=== PATIENT | male | born 2005 | race Caucasian/White ===

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

== ENCOUNTER 2023-05-16 02:10 | Emergency (ER) | payer MEDICAID, SELFPAY ==
[2023-05-16 02:18] VITALS: BP 131/62; PULSE 72; RESP 16; TEMP 36.7; O2SAT 99; BMI 20.6
--- NOTE | 2023-05-16 02:31 | CTR_ITS ---
PROCEDURE INFORMATION: Exam: CT Abdomen And Pelvis Without Contrast Exam date and time: 05/16/2023 2:39 AM Age: 17 years old Clinical indication: Flank; Patient HX: Right anterior abdominal pain just below right ribs; Additional info: Rlq and flank pain TECHNIQUE: Imaging protocol: Computed tomography of the abdomen and pelvis without contrast. Radiation optimization: All CT scans at this facility use at least one of these dose optimization techniques: automated exposure control; mA and/or kV adjustment per patient size (includes targeted exams where dose is matched to clinical indication); or iterative reconstruction. REPORTING DATA: Count of CT and Cardiac NM exams in prior 12 months: This patient has received 0 known CTs and 0 known cardiac nuclear medicine studies in the 12 months prior to the current study. COMPARISON: No relevant prior studies available. RADIATION DOSE METRICS: Total DLP (mGy-cm): 427.03 FINDINGS: Lungs: Lung bases are clear. Liver: The liver is unremarkable. Gallbladder and bile ducts: The gallbladder is unremarkable. No biliary ductal dilatation. Pancreas: The pancreas is unremarkable. Spleen: The spleen is unremarkable. Adrenal glands: The adrenal glands are unremarkable. Kidneys and ureters: Obstructing ureterolith in the distal right ureter measuring up to 0.4 cm (axial series 3, image 207). This ureterolith is located approximately 1.5 cm proximal to the right ureterovesicular junction. Mild right hydroureter and hydronephrosis. Additional nonobstructing nephrolith in the right kidney lower pole measuring 0.3 cm. Additional nonobstructing nephrolith in the left kidney lower pole measuring 0.2 cm. Stomach and bowel: Nonobstructive bowel gas pattern. Appendix: The appendix is normal. Intraperitoneal space: Trace nonspecific free fluid in the pelvis. Vasculature: Unremarkable. No abdominal aortic aneurysm. Lymph nodes: No suspicious lymphadenopathy. Urinary bladder: Urinary bladder is within normal limits. Reproductive: Reproductive organs are within normal limits. Bones/joints: No acute osseous findings. Soft tissues: Superficial soft tissues are within normal limits. CT/CT kidney stone [id number] IMPRESSION: 1. Obstructing ureterolith in the distal right ureter measuring up to 0.4 cm, as above. Mild right hydroureter and hydronephrosis. 2. Additional tiny nonobstructing nephroliths in the bilateral kidneys as above.
[2023-05-16] MEDS: sodium chloride 0.9% 1,000 ML 999 ML IV (02:40)
[2023-05-16 02:42] LABS: Basophils % 0.4 %; Eosinophils % 0.1 %; Hematocrit 38.5 % (37-53); Lymphocytes # 1.9 10^3/uL (1.5-6.5); Lymphocytes % 25.3 %; Mean Corpuscular HGB Conc 35.6 g/dL (30-55); Mean Corpuscular Hemoglobin 30.7 pg (27-33); Mean Corpuscular Volume 86.3 fl (82-101); Mean Platelet Volume 8.8 fL (7.4-10.4); Monocytes # 0.3 10^3/uL (0.2-0.9); Monocytes % 3.7 %; Neutrophils % 70.4 %; Nucleated Red Blood Cells % 0 %; Platelet Count 298 10^3/cmm (157-399); Red Blood Count 4.46 10^6/uL (3.85-5.65); Red Cell Distribution Width 11.9 % (12.1-15.1); White Blood Count 7.39 10^3/uL (4.5-13.0)
[2023-05-16] MEDS: ondansetron 2 mg/ML SDV 2 mL 4 MG IVP (02:53)
[2023-05-16] MEDS: HYDROmorphone 1 mg/mL INJ 1 mL IVP (02:54)
[2023-05-16 02:58] LABS: Alanine Aminotransferase 13 U/L (0-41); Albumin Level 4.3 g/dL (3.5-5.2); Alkaline Phosphatase 80 U/L (40-130); Anion Gap 20.2 (5-19); Aspartate Amino Transferase 13 U/L (0-40); Blood Urea Nitrogen 12 mg/dL (6-20); Calcium 9.3 mg/dL (8.5-10.5); Carbon Dioxide 19 mmol/L (22-29); Chloride 104 mmol/L (98-107); Globulin 2.9 g/dL (1.3-4.6); Glomerular Filtration Rate 96.3 mL/min (90-130); Glucose 130 mg/dL (65-115); Lipase 21 U/L (13-60); Osmolality Calculated 292 mOsm/kg (285-295); Potassium 3.2 mmol/L (3.5-5.1); Sodium 140 mmol/L (136-145); Total Bilirubin 1.1 mg/dL (0.15-1.2); Total Protein 7.2 g/dL (6.6-8.7)
[2023-05-16 03:05] VITALS: BP 124/78; PULSE 56; RESP 16; O2SAT 99
--- NOTE | 2023-05-16 03:09 | ED_ITS ---
HPI - Abdominal Pain General: Chief Complaint: Abdominal Pain Stated Complaint: ABD PAIN Time Seen by Provider: 05/16/23 02:20 History of Present Illness: 17-year-old male complaining of right pelvic and right flank pain starting around 1 AM. He is nauseated. He vomited once. He was given pain medication in the ambulance, which helped to some degree. He still having some pain. No fever. No history of belly surgery. He is healthy otherwise. No diarrhea. Associated Symptoms: Reports nausea and vomiting; Denies chills, diarrhea, dysuria, fever(s) and hematochezia Review of Systems Const: Denies: fever(s), chills or body aches Eyes: Denies: change in vision Card: Denies: chest pain or palpitations Resp: Denies: dyspnea, productive cough, non-productive cough or wheezing GI: Reports: abdominal pain, nausea and vomiting; Denies: diarrhea or hematochezia : Reports: flank pain and difficulty urinating; Denies: dysuria Skin/Breast: Denies: rash Neuro: Denies: headache(s), weakness in extremities, dizziness or confusion PFS ED PFSH: Medical History No pertinent family history Surgical History No pertinent past surgical history Social History Smoking and tobacco status: never smoked Physical Exam Const: COMMON NORMALS: no acute distress GENERAL APPEARANCE: cooperative; not ill appearing and not frail appearing HENMT: COMMON NORMALS: normocephalic, atraumatic and Normal external nose present HEAD & SCALP: normocephalic and atraumatic FACE & SINUS: normal facial exam and face symmetric NOSE: Normal external nose present Eye: COMMON NORMALS: Equal, round and reactive pupils present and EOMs intact bilaterally PUPIL: Yes Equal, round and reactive pupils present Neck/C-Spine: GENERAL: Yes trachea midline Chest: CHEST: Yes Symmetrical chest wall rise Resp: COMMON NORMALS: normal respiratory effort, No retractions, No use of accessory muscles and clear to auscultation bilaterally AUSCULTATION: clear to auscultation bilaterally Cardio: COMMON NORMALS: regular rate and regular rhythm RATE: regular rate RHYTHM: regular rhythm GI: COMMON NORMALS: Normal to inspection, nondistended, normoactive bowel sounds present PALPATION: Yes Tenderness to palpation present (GI) Details: RLQ : BLADDER/KIDNEY EXAM: Yes CVA tenderness on the right Back/Pelvis: GENERAL BACK: Yes CVA tenderness Extremity: COMMON NORMALS: no pedal edema Neuro: BRINDA COMA SCALE: document GCS findings Turney coma scale eye opening: Spontaneous Brinda coma scale verbal response: Orientated Brinda coma scale motor response: Obey commands Brinda coma scale total score: 15 SENSORY EXAM: Yes extremities (intact) Psych: COMMON NORMALS: speech normal SPEECH: Yes normal speech Skin: COMMON NORMALS: no rashes or lesions noted GENERAL SKIN EXAM: no r ashes or lesions noted Course Vital Signs: Vital signs: Vital Signs Temperature 98.1 F 05/16/23 03:58 Pulse Rate 56 L 05/16/23 03:58 Respiratory Rate 16 05/16/23 03:58 Blood Pressure 124/78 05/16/23 03:58 Pulse Oximetry 99 05/16/23 03:58 Oxygen Delivery Me thod Room Air 05/16/23 02:18 MDM - Abdominal Pain Medical Decision Making White blood cell count is normal. Potassium is 3.2. Bicarb is 19. He is given a liter of fluid. Lipase is normal. CRP is 3. CT of the belly shows a 4 mm right distal ureter stone. Awaiting urinalysis result. Urinalysis reveals hematuria without infection. Patient's pain is better controlled. Will allow home, symptomatic treatment. Urology follow-up. Lab Data 05/16/23 02:38 05/16/23 02:38 Labs/Radiology: Radiology Impressions Abdomen/Pelvis CT 05/16/23 02:31 IMPRESSION: 1. Obstructing ureterolith in the distal right ureter measuring up to 0.4 cm, as above. Mild right hydroureter and hydronephrosis. 2. Additional tiny nonobstructing nephroliths in the bilateral kidneys as above. Laboratory Results WBC 7.39 10^3/uL (4.5-13.0) 05/16/23 02:38 RBC 4.46 10^6/uL (3.85-5.65) 05/16/23 02:38 Hgb 13.70 g/dL (13.2-15.6) 05/16/23 02:38 Hct 38.5 % (37-53) 05/16/23 02:38 MCV 86.3 fl (82-101) 05/16/23 02:38 MCH 30.7 pg (27-33) 05/16/23 02:38 MCHC 35.6 g/dL (30-55) 05/16/23 02:38 RDW 11.9 % (12.1-15.1) L 05/16/23 02:38 Plt Count 298 10^3/cmm (157-399) 05/16/23 02:38 MPV 8.8 fL (7.4-10.4) 05/16/23 02:38 Neut % (Auto) 70.4 % 05/16/23 02:38 Lymph % (Auto) 25.3 % 05/16/23 02:38 Collin % (Auto) 3.7 % 05/16/23 02:38 Eos % (Auto) 0.1 % 05/16/23 02:38 Baso % (Auto) 0.4 % 05/16/23 02:38 Neut # (Auto) 5.20 10^3/uL (1.8-8.0) 05/16/23 02:38 Lymph # (Auto) 1.9 10^3/uL (1.5-6.5) 05/16/23 02:38 Collin # (Auto) 0.3 10^3/uL (0.2-0.9) 05/16/23 02:38 Eos # (Auto) 0.0 10^3/uL (0.0-0.8) 05/16/23 02:38 Baso # (Auto) 0.0 10^3/uL (0.0-0.1) 05/16/23 02:38 Nucleated RBC % (auto) 0 % 05/16/23 02:38 Nucleated RBCs # 0.0 /100WBC 05/16/23 02:38 Sodium 140 mmol/L (136-145) 05/16/23 02:38 Potassium 3.2 mmol/L (3.5-5.1) L 05/16/23 02:38 Chloride 104 mmol/L (98-107) 05/16/23 02:38 Carbon Dioxide 19 mmol/L (22-29) L 05/16/23 02:38 Anion Gap 20.2 (5-19) H 05/16/23 02:38 BUN 12 mg/dL (6-20) 05/16/23 02:38 Creatinine 1.0 mg/dL (0.7-1.2) 05/16/23 02:38 GFR Calculation 96.3 mL/min (90-130) 05/16/23 02:38 Glucose 130 mg/dL (65-115) H 05/16/23 02:38 Calculated Osmolality 292 mOsm/kg (285-295) 05/16/23 02:38 Calcium 9.3 mg/dL (8.5-10.5) 05/16/23 02:38 Total Bilirubin 1.1 mg/dL (0.15-1.2) 05/16/23 02:38 AST 13 U/L (0-40) 05/16/23 02:38 ALT 13 U/L (0-41) 05/16/23 02:38 Alkaline Phosphatase 80 U/L (40-130) 05/16/23 02:38 C-Reactive Protein 3.0 mg/L (0.0-4.9) 05/16/23 02:38 Total Protein 7.2 g/dL (6.6-8.7) 05/16/23 02:38 Albumin 4.3 g/dL (3.5-5.2) 05/16/23 02:38 Globulin 2.9 g/dL (1.3-4.6) 05/16/23 02:38 Lipase 21 U/L (13-60) 05/16/23 02:38 Urine Color Light yellow (Yellow) 05/16/23 02:59 Urine Appearance Cloudy (CLEAR) A 05/16/23 02:59 Urine pH 9 (5-7) H 05/16/23 02:59 Ur Specific [place] 1.015 (1.005-1.030) 05/16/23 02:59 Urine Protein Neg (Negative) 05/16/23 02:59 Urine Glucose (UA) Norm (Normal) 05/16/23 02:59 Urine Ketones 2+ (Negative) H 05/16/23 02:59 Urine Blood 3+ (Negative) H 05/16/23 02:59 Urine Nitrate Negative (Negative) 05/16/23 02:59 Urine Bilirubin Neg (Negative) 05/16/23 02:59 Prot Sulfosalicylic Acd Negative (Negative) 05/16/23 02:59 Urine Urobilinogen Neg mg/dL (Negative) 05/16/23 02:59 Ur Leukocyte Esterase Negative (Negative) 05/16/23 02:59 Urine RBC 50-80 /hpf (0-2) H 05/16/23 02:59 Urine WBC 0-4 /hpf (0-5) H 05/16/23 02:59 Ur Squamous Epith Cells None /hpf (0-5) 05/16/23 02:59 Amorphous Sediment 2+ /hpf 05/16/23 02:59 Urine Bacteria 2+ /hpf (NONE) H 05/16/23 02:59 XR interpretation done by ED provider, pending radiology final review Discharge Plan Discharge Patient Disposition: Home Clinical Impression: Ureterolithiasis Condition: Stable Prescriptions: New ketorolac 10 mg tablet 10 mg PO TID PRN (Reason: pain) Qty: 10 0RF Percocet 7.5-325 mg tablet 1 tab PO Q6H PRN (Reason: pain) Qty: 10 0RF ondansetron 4 mg film 4 mg PO DAILY PRN (Reason: nausea and vomiting) Qty: 10 0RF Flomax 0.4 mg capsule 0.4 mg PO DAILY Qty: 7 0RF No Action (DME) Hinged Elbow Brace See Rx Instructions .Route .MEDSUPPLY Qty: 1 0RF Rx Instructions: As directed Discharge Orders: Discharge ED (Routine); Ordered 05/16/23 Ordered By: Javed Weber Patient Instructions: Kidney Stones (ED), Opioid Safety, Pain Management Activity Restrictions/Additional Instructions: Medication as directed. You may alternate pain medications. Take nausea medication scheduled for the first 24 hours, then as needed. Tamsulosin will help you pass the stone. Call the urology clinic in the morning for outpatient follow-up. We do not have urology at this facility. Return for fever, worsening pain despite treatment, vomiting liquids or medications, other concerning symptoms. Coding Level of Care Code ED Distance Learning Technician for Pat Claire
[2023-05-16] MEDS: potassium chloride ER 20 mEq Tablet PO (03:11)
[2023-05-16] MEDS: ketorolac 30 mg/mL INJ IVP (03:11)
[2023-05-16 03:28] LABS: Add Urine Microscopic? YES; Bilirubin Urine Neg (Negative); Blood Urine 3+ (Negative); Glucose Urine UA Norm (Normal); Ketones Urine 2+ (Negative); Leukocyte Esterase Urine Negative (Negative); Nitrate Urine Negative (Negative); Protein Urine Neg (Negative); Specific Gravity, Urine 1.015 (1.005-1.030); Sulfosalicylic Acid Urine Negative (Negative); Urine Appearance Cloudy (CLEAR); Urine Color Light yellow (Yellow); Urobilinogen Urine Neg (Negative); pH Urine 9 (5-7)
[2023-05-16 03:29] LABS: Add Urine Culture? Yes; Amorphous Sediment Urine 2+ /hpf; Bacteria Urine 2+ /hpf; RBC Urine 50-80 /hpf (0-2); WBC Urine 0-4 /hpf (0-5)
[2023-05-16 03:58] VITALS: BP 124/78; PULSE 56; RESP 16; TEMP 36.7; O2SAT 99
== END 2023-05-16 04:01 | disposition home or self-care (01) ==
PROVIDERS: Emergency Provider Emergency Medicine
DX: N20.1 Calculus of ureter (principal)
CPT/HCPCS: 74176; 80053; 81001; 83690; 85025; 86140; 87086; 96361; 96374; 96375; 99285; J1170; J1885; J2405; J7030